=== PATIENT | male | born 1960 | race Caucasian/White ===

== ENCOUNTER 2022-08-02 04:48 | Observation (INO) | payer OTHER ==
[~2022-08-02] VITALS: Ht 172.7 cm; Wt 99.2 kg
[2022-08-02] MEDS ORDERED: LISINOPRIL-HCT1 EAC1 PO (08:42)
--- NOTE | 2022-08-02 10:03 | NUR ---
PT ARRIVED TO UNIT VIA EMS. AMBULATED TO RESTROOM AND VOIDED; AMBULATED TO BED. RATES PAIN /10 TO CENTER CHEST/MIDEPIGASTRIC. DENIES NAUSEA AT THIS TIME. DENIES SOB OR N/T. DR DURAN IN TO SEE PT. NOW PT TO IMAGING. TELE READING NSR.
[2022-08-02 13:38] LABS: Anti-Xa UFH, PHA Monitoring <0.10 IU/mL; International Normalized Ratio 0.96; Prothrombin Time Results 10.1 Sec (9.7-11.5)
[2022-08-02 15:43] LABS: Hematocrit 43.3 % (37.0-53.0); Hemoglobin 15.7 g/dL (13.5-17.5); Mean Platelet Volume 11.2 fL (9.1-12.4); Platelet Count 198 K/mm3 (150-400)
[2022-08-02 15:54] LABS: Amylase, Blood 76 U/L (25-115)
[2022-08-03 03:58] LABS: Bun/Creatinine Ratio 16.4 (12.0-20.0); Calcium, Blood 7.9 mg/dL (8.5-10.1); Creatinine, Blood 1.22 mg/dL (0.60-1.20); Potassium, Blood 3.4 mmol/L (3.5-5.5)
--- NOTE | 2022-08-03 06:08 | NUR ---
SHIFT SUMMARY PT A&Ox4, CALLS AND COMMUNICATES NEEDS APPRORPIATELY. VSS, BP STABLE, SINUS 80's. REPORTS CONSTANT MILD-MOD CP/MIDEPIGASTRIC PAIN, PHYSICIAN AWARE, MEDICATED PER EMAR. SpO2> 92% RA, DENIES SOB. PT CONTINENT OF URINE AND BOWEL. USES URINAL AT BEDSIDE APPROPRIATELY, NO BM THIS SHIFT. HEPARIN gtt STOPPED AT 0445 PER NURSE NOTIFY ORDER. PT NPO AT 000. NO OTHER EVENTS, WILL REPORT TO ONCOMING RN.
--- NOTE | 2022-08-03 12:01 | NUR ---
CARE NOTE PT ARRIVED FROM [employer] DAMAGE CLAIMS ADJUSTOR APPROX 1150, VSS. TR BAND IN PLACE ON R RADIAL SITE. WILL CONTINUE TO MONITOR VSS AND TR BAND PER ORDERS/PROTOCOL.
[2022-08-03] MEDS ORDERED: ASPI81CH PO (16:08)
[2022-08-03] MEDS ORDERED: ATOR80 PO (16:08)
[2022-08-03] MEDS ORDERED: CARV3.125 PO (16:09)
[2022-08-03] MEDS ORDERED: CLOP75 PO (16:09)
--- NOTE | 2022-08-03 18:07 | NUR ---
DISCHARGE NOTE PT ALERT AND ORIENTED X 4, VSS. HE DENIED FEELINGS OF DIZZINESS/LIGHTHEADEDNESS. HE DENIED FEELING SOB. TR BAND REMOVED AFTER BEING DEFLATED >1 HOUR AT APPROX. 1600, TRANSPARENT DRESSING APPLIED. THERE WERE NO SIGNS OF BLEEDING IN R RADIAL SITE. PT WAS UP TO BATHROOM AND APPEARED STEADY ON HIS FEET. DISCHARGE INSTRUCTIONS WERE PROVIDED BY THIS RN INCLUDING FOLLOW UP APPOINTMENTS, ANGIO SITE CARE, AND MEDICATION REGIMEN. PT LEFT PCU APPROX. 1740 W/ ALL OF PERSONAL BELONGINGS.
== END 2022-08-03 18:21 | disposition home or self-care (01) ==
LOC: PCU 04:48
PROVIDERS: Internal Medicine; Internal Medicine Cardiovascular Disease; ADMIT Internal Medicine
DX: I21.4 Non-ST elevation (NSTEMI) myocardial infarction (principal); I25.10 Atherosclerotic heart disease of native coronary artery without angina pectoris; I16.0 Hypertensive urgency; R77.8 Other specified abnormalities of plasma proteins; R79.89 Other specified abnormal findings of blood chemistry; R10.13 Epigastric pain; R65.10 Systemic inflammatory response syndrome (SIRS) of non-infectious origin without acute organ dysfunction; I45.10 Unspecified right bundle-branch block; I10 Essential (primary) hypertension; I08.0 Rheumatic disorders of both mitral and aortic valves; Z87.891 Personal history of nicotine dependence; Z88.8 Allergy status to other drugs, medicaments and biological substances; Z79.899 Other long term (current) drug therapy
CPT/HCPCS: 36415; 71275; 74175; 76937; 80048; 82150; 83690; 84484; 85014; 85018; 85049; 85379; 85520; 85610; 85730; 93005; 93010; 93306; 93458; 99152; A9270; C1751; C1769; C1887; C1894; J0360; J1644; J2250; J2405; J3010; J7030; J7040; J7050; Q9967